=== PATIENT | male | born 1970 | race Caucasian/White ===

== ENCOUNTER 2020-06-21 18:34 | Emergency (ER) | payer SELFPAY ==
[2020-06-21 18:43] VITALS: TEMP 37.1
--- NOTE | 2020-06-21 20:14 | ED.GENADULT ---
HPI - General Adult General Chief complaint: Extremity Injury, Upper Stated complaint: rt index and middle finger cut by tablesaw Time Seen by Provider: 06/21/20 19:15 Source: patient Mode of arrival: Ambulatory Limitations: no limitations History of Present Illness HPI narrative: 50-year-old male sent over from [facility] for evaluation of cuts that he sustained on his right index and middle fingers after he was cut by table saw. This occurred earlier this evening. Received a dose of antibiotics prior to arrival. His tetanus is updated. He states he had x-rays performed had a were some concerns about fractures but we do not have the reports these x-rays. Related Data Previous Rx's Medication Instructions Recorded cephalexin [Keflex] 500 mg PO QID 5 Days #20 cap 06/21/20 Allergies Allergy/AdvReac Type Severity Reaction Status Date / Time No Known Drug Allergies Allergy Verified 06/21/20 18:47 Review of Systems Musculoskeletal Comments: Pain to the right index and middle finger Integumentary/Breasts Comments: Cuts to the right index and middle finger Neurologic Neurologic: Denies paresthesias Hematologic/Lymphatic Hematologic/Lymphatic: Denies easy bleeding and Denies easy bruising Patient History Medical History Patient denies medical problems (Acute) Social History Smoking Status: Current every day smoker Smoking Status: Current every day smoker Exam Initial Vital Signs Initial Vital Signs: Vital Signs Temperature 98.7 F 06/21/20 18:43 Const General: cooperative and comfortable Cardio Pulses: radial pulses present on the right Skin Other: Patient with a 2 cm cut to the ulnar aspect of the distal right index finger. This does involve the distal portion of the nail and also the pad of the finger. Has a very similar looking cut to the distal portion of the left ring finger. Neuro Sensory Exam: no sensory deficits noted Extrem Other: Can flex and extend the DI P PIP and MCP joint of the right index and middle finger. Procedures Laceration Repair Laceration 1: Site: hand (Right index finger) Side (If applicable): right Size (cm): 2 Description: linear Depth: simple, single layer Pre-repair: wound explored, irrigated extensively and deep structures intact Skin layer closed with: nylon Size (cm): 3-0 Number of sutures: 2 Technique: simple, interrupted Laceration 2: Site: hand (Middle finger) Side (If applicable): right Size (cm): 2 Description: linear Depth: simple, single layer Pre-repair: wound explored, irrigated extensively and deep structures intact Skin layer closed with: nylon Size (cm): 3-0 Number of sutures: 2 Technique: simple, interrupted Nerve Block Nerve Block 1: Time out performed: Yes Local Anesthetic: lidocaine 1% and with bicarb Amount of anesthesia used (mL): 5 Side: right Nerve Blocks: digital (Middle finger) Procedure Successful: Yes Patient Tolerated Procedure: Well and No complications Complications: none Nerve Block 2: Time out performed: Yes Local Anesthetic: lidocaine 1% and with bicarb Amount of anesthesia used (mL): 5 Side: right (Index finger) Nerve Blocks: digital Procedure Successful: Yes Patient Tolerated Procedure: Well Complications: none Course Orders Ordered: ED Orders 06/21/20 20:14 XR hand RT min 3V Stat Discontinued Medications Lidocaine/Sodium Bicarbonate (Buffered Lidocaine 10 Ml Syr) 10 ml INJ NOW ONE Stop: 06/21/20 20:15 Last Admin: 06/21/20 21:06 Dose: 10 ml Documented by: JHONATAN Vital Signs Vital signs: Vital Signs - 8 hr 06/21/20 21:20 06/21/20 22:29 Pulse Rate 59 L Pulse Rate [Right Radial] 88 Respiratory Rate 18 Blood Pressure 175/99 H Pulse Oximetry 99 Medical Decision Making Imaging Data Extremity x-ray #1: Radiologist's Impression: [address] [address] XRay Report Signed Patient: Brock Whitney [facility]#: [id number] : 1970Acct:[id number] Age/Sex: 50 / MDate of Service: 06/21/20 Loc: ED Accession Number: [id number] Procedure: XR hand RT min 3V Ordering Provider: Brock Vidal D.O. PROCEDURE: XR HAND RT MIN 3V INDICATIONS: table saw to index and middle finger TECHNIQUE: 3 views of the hand(s) acquired. COMPARISON: None. FINDINGS: Bones: No fractures or dislocations. Carpal bones are normally aligned. No suspicious bony lesions. Soft tissues: No suspicious soft tissue calcifications. No radiopaque foreign bodies. IMPRESSION: No acute osseous abnormalities. No radiopaque foreign bodies. Dictated by: Verenice Serrato M.D. on 06/21/2020 at 21:08 Approved by: Verenice Serrato M.D. on 06/21/2020 at 21:10 MDM Narrative Medical decision making narrative: No fractures noted on the x-rays. Patient's tetanus has already been updated. He received a dose of antibiotics prior to his arrival. Modified trauma was called secondary the fact that this was a table saw verses fingers. Wounds were explored. Deep structures intact. The 2 lacerations were closed as described above. Patient was given care instructions and return precautions and follow-up instructions. Will send home on antibiotics given the nature of the injury. Patient expressed understanding agreed with this plan. Discharge Plan Departure Patient Disposition: Home Clinical Impression: Finger laceration Qualifiers: Encounter type: initial encounter Finger: unspecified finger Damage to nail status: with damage Foreign body presence: without foreign body Laterality: right Qualified Code(s): S61.319A - Laceration without foreign body of unspecified finger with damage to nail, initial encounter Discharge Date/Time: 06/21/20 22:29 Instructions: DI for Laceration Repair -- Finger Activity Restrictions/Additional Instructions: The stitches do need to be removed in 7-10 days. After 24 hours you can remove the bandage. You can wash your hands like normal. Do not soak your hands in anything until the stitches are removed. Take the antibiotics as directed. Return to the emergency department for any new or worsening symptoms. Prescriptions: New cephalexin [Keflex] 500 mg capsule 500 mg PO QID 5 Days Qty: 20 RF: 0 Referrals: Gerardo Giles MD [Primary Care Provider] -
[2020-06-21] MEDS: LIDO 1%/SOD BICARB 8.4% (10ML) 10 ML SYRINGE INJ (21:06)
[2020-06-21 21:20] VITALS: PULSE 88
[2020-06-21 22:29] VITALS: BP 175/99; PULSE 59; RESP 18; O2SAT 99
== END 2020-06-21 22:29 | disposition home or self-care (01) ==
PROVIDERS: Emergency Provider Emergency Medicine; Family Provider Family Medicine; PCP Family Medicine
DX: S61.210A Laceration without foreign body of right index finger without damage to nail, initial encounter (principal); S61.212A Laceration without foreign body of right middle finger without damage to nail, initial encounter; W31.2XXA Contact with powered woodworking and forming machines, initial encounter
CPT/HCPCS: 12002; 73130; 99284

== ENCOUNTER → 2021-06-26 08:27 | Outpatient (CLI) | payer OTHER, SELFPAY ==
[2021-06-26 22:12] LABS: COVID19 - ORCAS (NP or Nasal) Negative (Negative)
== END ==
PROVIDERS: Family Provider Family Medicine; PCP Physician Assistant Medical; Visit Provider Family Medicine
DX: Z20.822 Contact with and (suspected) exposure to COVID-19 (principal)
CPT/HCPCS: U0003